=== PATIENT | female | born 1955 | race Caucasian/White ===

== ENCOUNTER → 2019-09-29 15:07 | Outpatient (CLI) | payer OTHER, SELFPAY ==
--- NOTE | ~2019-09-29 | US_ITS ---
EXAMINATION: US transvaginal DATE: 09/29/2019 15:32 INDICATION: Postmenopausal with mother with prior ovarian cancer TECHNIQUE: Multiple endovaginal sonographic images of the pelvis were obtained. COMPARISON: 09/14/2018 FINDINGS: The retroverted uterus measures 4.4 x 2.0 cm in the longitudinal plane. The endometrial complex measu res 1.5 mm in thickness. Again seen is a small hyperechoic dystrophic calcifications in the region of the endometrial complex likely sequela of prior reported D&C. The right ovary measures 1.3 x 0.8 x 0 .9 cm. The left ovary measures 1.3 x 0.8 x 0.8 cm. There is no free fluid in the pelvis. IMPRESSION: 1. Unremarkable postmenopausal pelvic ultrasound. Reviewed, dictated and finalized at location A. LITIES MAINTENANCE SUPERVISOR
== END ==
PROVIDERS: PCP Family Medicine; Visit Provider Nurse Practitioner
DX: Z80.41 Family history of malignant neoplasm of ovary (principal)
CPT/HCPCS: 76830

== ENCOUNTER 2020-09-18 14:34 | Outpatient (CLI) | payer OTHER, SELFPAY ==
--- NOTE | ~2020-09-18 | XR_ITS ---
XR chest 2V DATE: 09/18/2020 15:45 INDICATION: Chest pain, left side, intermittent for 4 months TECHNIQUE: PA and lateral views COMPARISON: None FINDINGS: Normal heart size. No hilar or mediastinal enlargement. No pulmonary infiltrate or consolid ation, pleural effusion or pulmonary vascular congestion or pneumothorax. Diffuse osteopenia. IMPRESSION: No active cardiopulmonary disease Diffuse osteopenia Reviewed, dictated and finalized at location B. HT CONTROLS ENGINEER
--- NOTE | 2020-09-18 14:56 | ECHO_ITS ---
Patient Info Name: Carmen Serrano Age: 64 years : 1955 Gender: Female Ht: 60 in Wt: 112 lbs BSA: 1.47 m2 HR: 78 bpm BP: 151 / 71 mmHg Heart Rhythm: Sinus Rhythm Technical Quality: Excellent Exam Date: 09/18/2020 3:09 PM Exam Location: [facility] Patient Status: Outpatient Admit Date: 09/18/2020 Staff Ordering Physician: Julian Chase PA-C Music Producer: Pal Ambrocio RDCS Attending Provider: Julian Chase PA-C Referring Physician: Rena LOWE; Exam Type: CA echo doppler color flow Study Info Indications R07.9 - Chest pain, unspecified R01.1 - Cardiac murmur, unspecified Complete two-dimensional, color flow and Doppler transthoracic echocardiogram is performed. Strain analysis performed. History/Risk Factors Chest pain and murmur. Summary 1. Complete two-dimensional, color flow and Doppler transthoracic echocardiogram is performed. 2. Left ventricular chamber dimension is normal. 3. Left ventricular systolic function is normal, estimated at 60-65%. 4. The left ventricular diastolic function is grade I diastolic dysfunction. 5. E/e' 11 is mildly elevated. 6. Global longitudinal strain is normal at -19.5%. 7. There is mild aortic valve regurgitation. 8. There is trace mitral valve regurgitation. 9. No pulmonary hypertension, estimated pulmonary arterial systolic pressure is 26 mmHg. Left Ventricle E/e' 11 is mildly elevated. Global longitudinal strain is normal at -19.5%. Left ventricular chamber dimension is normal. Left ventricular systolic function is normal, estimated at 60-65%. The left ventricular diastolic function is grade I diastolic dysfunction. Right Ventricle Right ventricular chamber dimension is normal. Right ventricular systolic function is normal. Left Atria Left atrial chamber dimension is normal. Right Atria Right atrial chamber dimension is normal. Aortic Valve The aortic valve is trileaflet. There is no aortic valve stenosis. There is mild aortic valve regurgitation. Pulmonic Valve There is no pulmonic regurgitation. Mitral Valve There is no mitral valve stenosis. There is trace mitral valve regurgitation. Tricuspid Valve There is no tricuspid valve regurgitation. No pulmonary hypertension, estimated pulmonary arterial systolic pressure is 26 mmHg. Pericardium/Pleural There is no pericardial effusion. Inferior Vena Cava Normal inferior vena cava with >50% collapse upon inspiration consistent with normal right atrial pressure, 5 mmHg. Aorta The aortic root size at the sinus of Valsalva is normal. Left Ventricular Outflow Tract Name Value Normal LVOT 2D LVOT Diameter 2.0 cm LVOT Doppler LVOT Peak Gradient 3 mmHg LVOT Mean Gradient 2 mmHg LVOT VTI 20 cm LVOT VTI/AV VTI Ratio 0.5 LVOT Stroke Volume 60 ml LVOT CO 4.3 l/min LVOT CI 2.9 l/min/m2 Mitral Valve ------
== END 2020-09-18 14:35 | disposition home or self-care (01) ==
PROVIDERS: PCP Physician Assistant; Visit Provider Physician Assistant
DX: R07.9 Chest pain, unspecified (principal); R01.1 Cardiac murmur, unspecified; M85.89 Other specified disorders of bone density and structure, multiple sites
CPT/HCPCS: 71046; 93306

== ENCOUNTER → 2020-10-01 13:13 | Outpatient (CLI) | payer OTHER, SELFPAY ==
--- NOTE | ~2020-10-01 | DEXA_ITS ---
Bone Density Report Name: Carmen Serrano Age: 64 Sex: Female Ethnicity: White Date of : 1955 Indication: postmenopausal osteoporosis; Referring Provider: YULY, RASHARD Study: Bone densitometry was performed. Exam Date: October 01, 2020 Accession number: [id number] Bone Density: Region BMD T-score Z-score Classification AP Spine (L1-L4) 0.620 -3.9 -2.2 Osteoporosis Femoral Neck (Left) 0.519 -3.0 -1.5 Osteoporosis Total Hip (Left) 0.573 -3.0 -1.9 Osteoporosis Femoral Neck (Right) 0.463 -3.5 -2.0 Osteoporosis Total Hip (Right) 0.587 -2.9 -1.8 Osteoporosis Total Hip Mean 0.580 -3.0 -1.9 Osteoporosis World Health Organization criteria for BMD impression classify patients as: Normal (T-score at or above -1.0), Osteopenia (T-score between -1.0 and -2.5), or Osteoporosis (T-score at or below -2.5). 10-year Fracture Risk: FRAX not reported because: Some T-score for Spine Total or Hip Total or Femoral Neck at or below -2.5 Previous Exams: Region Exam Age BMD T-score BMD Change BMD Change Date g/cm2 vs Baseline vs Previous AP Spine(L1-L4) 10/01/2020 64 0.620 -3.9 -0.103* -0.046* 02/27/2011 55 0.666 -3.5 -0.056* -0.056* 02/28/2009 53 0.723 -2.9 Total Hip(Left) 10/01/2020 64 0.573 -3.0 -0.107* -0.061* 02/27/2011 55 0.634 -2.5 -0.046* -0.046* 02/28/2009 53 0.680 -2.1 Total Hip(Right) 10/01/2020 64 0.587 -2.9 -0.084* -0.054* 02/27/2011 55 0.641 -2.5 -0.030* -0.030* 02/28/2009 53 0.671 -2.2 *Denotes significance at 95% confidence level, LSC for AP Spine = 0.022 g/cm2, LSC for Total Hip = 0.027 g/cm2 Clinical Information Provided by Patient: Has used the following medications: Calcium, just started weekly Vit D Patient maximum height was 60 Menopause Age: 55 No regular weight bearing exercise Does not regularly consume dairy products Drinks caffeinated beverages Onset of menses at age 16 Number of children 3 Impression: The patient has osteoporosis, based on the Total Spine T-score. The BMD for the AP Spine(L1-L4) decreased, changing by -0.046 since the last DXA exam. The BMD for the Total Hip(Left) decreased, changing by -0.061 since the last DXA exam. The BMD for the Total Hip(Right) decreased, changing by -0.054 since the last DXA exam. Discussion: HIGH RISK OF FRACTURE. BONE DENSITY IS UNDESIRABLY LOW AT ONE OR
--- NOTE | ~2020-10-01 | US_ITS ---
EXAMINATION: US transvaginal DATE: 10/01/2020 14:23 INDICATION: Family history of ovarian cancer TECHNIQUE: Multiple endovaginal sonographic images of the pelvis were obtained. COMPARISON: 09/29/2019 FINDINGS: The uterus measures 4.5 x 1.7 x 1.3 cm. The endometrial complex measures 1 mm. The right ov aldo is not visualized however no right adnexal abnormality is seen. The left ovary measures 1.4 x 0.7 x 0.7 cm. There is no free fluid in the pelvis. IMPRESSION: 1. Unremarkable pelvic ultrasound. Reviewed, dictated and finalized at location A. MACY ANCILLARY
--- NOTE | ~2020-10-01 | MM_ITS ---
EXAMINATION: MM screening nelia BI w asha HISTORY: Screening TECHNIQUE: Craniocaudal and mediolateral oblique 3-D tomosynthesis images were obtained and synthetic 2-D images were generated. CAD analysis was submitted and interpreted. COMPARISON: Comparison to multiple prior studies sequentially, with oldest reviewed study dated 10/2013. BREAST PARENCHYMAL COMPOSITION: The breasts are heterogeneously dense, which may obscure small masses . FINDINGS: There is a mass in the lower inner quadrant of the left breast anteriorly which is partiall y obscured by fibroglandular tissue. The right breast is stable without evidence for malignancy. IMPRESSION: 1. Left breast mass, lower inner quadrant anteriorly. 2. Additional mammographic views and possible breast ultrasound are recommended. BI-RADS Category 0: Incomplete: Needs additional imaging evaluation. Reviewed, dictated and finalized at location A. HEALTH SPEECH THERAPIST IMPRESSION: 1. Left breast mass, lower inner quadrant anteriorly. 2. Additional mammographic views and possible breast ultrasound are recommended . BI-RADS Category 0: Incomplete: Needs additional imaging evaluation.
== END ==
PROVIDERS: Visit Provider Nurse Practitioner
DX: Z12.31 Encounter for screening mammogram for malignant neoplasm of breast (principal); Z13.820 Encounter for screening for osteoporosis; M81.0 Age-related osteoporosis without current pathological fracture; Z80.41 Family history of malignant neoplasm of ovary; N63.24 Unspecified lump in the left breast, lower inner quadrant
CPT/HCPCS: 76830; 77063; 77067; 77080

== ENCOUNTER → 2020-10-10 09:16 | Outpatient (CLI) | payer OTHER, SELFPAY ==
--- NOTE | ~2020-10-10 | MMUS_ITS ---
EXAMINATION: MM diagnostic mammo unilat LT, US breast LT limited HISTORY: Left lower inner quadrant anterior breast mass reported on 10/01/2020 bilateral digital screen ing mammogram TECHNIQUE: Additional 3-D tomosynthesis images of the left breast were performed and synthetic 2-D im ages were generated. CAD analysis was submitted and interpreted. High resolution subareolar left shelly st ultrasound was performed. COMPARISON: 10/01/2020, 09/14/2018, 08/11/2017, 07/06/2016 bilateral digital screening mammogram examinati ons. FINDINGS: MAMMOGRAPHIC FINDINGS: No suspicious mass, architectural distortion or skin thickening or retraction or any malignant calcif ication is noted. No definite changes noted on serial examinations dating back to 07/06/2016. ULTRASOUND: At 7-8:00 in the subareolar area there is a somewhat elongated circumscribed parallel hypoechoic area with through transmission, with benign mammographic appearance. No suspicious mass, shadowing or suspicious vascularity is evident. IMPRESSION: 1. No mammographic evidence of malignancy or significant change since 07/06/2016 2. Routine annual mammographic screening is recommended. BI-RADS Category 2: Benign finding(s). Reviewed, dictated and finalized at location A. SFER AND PUMPHOUSE OPERATOR CHIEF IMPRESSION: 1. No mammographic evidence of malignancy or significant change since 07/06/2016 2. Routine annual mammographic screening is recommended. BI-RADS Category 2: Benign finding(s).
== END ==
PROVIDERS: Visit Provider Obstetrics & Gynecology Gynecology
DX: R92.8 Other abnormal and inconclusive findings on diagnostic imaging of breast (principal)
CPT/HCPCS: 76642; 77065

== ENCOUNTER → 2021-10-06 12:30 | Outpatient (CLI) | payer OTHER, SELFPAY ==
--- NOTE | ~2021-10-06 | US_ITS ---
EXAMINATION: US transvaginal DATE: 10/06/2021 13:15 INDICATION: Family history of malignant ovarian neoplasm TECHNIQUE: Multiple endovaginal sonographic images of the pelvis were obtained. COMPARISON: 10/01/2020 FINDINGS: The retroverted uterus measures 5.7 x 1.6 x 3.2 cm. The endometrial complex measures 2 mm. 1.7 x 0.7 x 1.8 cm There is 1.1 x 0.5 x 0.8 cm free fluid in the pelvis. IMPRESSION: 1. Unremarkable pelvic ultrasound. Reviewed, dictated and finalized at location B. BOYS TENNIS COACH
--- NOTE | ~2021-10-06 | MM_ITS ---
EXAMINATION: MM screening nelia BI w asha HISTORY: Screening TECHNIQUE: Craniocaudal and mediolateral oblique 3-D tomosynthesis images were obtained and synthetic 2-D images were generated. CAD analysis was submitted and interpreted. COMPARISON: Comparison to multiple prior studies sequentially, with oldest reviewed study dated 08/2014. BREAST PARENCHYMAL COMPOSITION: There are scattered areas of fibroglandular density. FINDINGS: There is no evidence of suspicious mass, calcification, or architectural distortion to sugg est malignancy in either breast. There has been no suspicious interval change. IMPRESSION: 1. No mammographic evidence of malignancy. 2. Recommend routine screening mammography in one year. BI-RADS Category 1: Negative Reviewed, dictated and finalized at location A. CLERK
== END ==
PROVIDERS: Visit Provider Nurse Practitioner
DX: Z12.31 Encounter for screening mammogram for malignant neoplasm of breast (principal); Z80.41 Family history of malignant neoplasm of ovary
CPT/HCPCS: 76830; 77063; 77067

== ENCOUNTER → 2022-06-30 09:12 | Outpatient (CLI) | payer MEDICARE, SELFPAY ==
--- NOTE | ~2022-06-30 | XR_ITS ---
XR lumbar spine min 4V DATE: 06/30/2022 09:27 INDICATION: Lifting injury 3 weeks ago. Low back pain. TECHNIQUE: AP, lateral, bilateral oblique views, coned lateral lumbosacral view COMPARISON: None FINDINGS: Diffuse osteopenia. Normal alignment of the lumbar spine. No fracture or bone destruction, spondylolysis or spondylolisth esis. Pedicles are preserved. The sacroiliac joints and pubic symphysis are intact. IMPRESSION: Osteopenia; otherwise negative Reviewed, dictated and finalized at location B. TER SPRAY
== END ==
PROVIDERS: PCP Family Medicine; Visit Provider Physician Assistant Medical
DX: M81.0 Age-related osteoporosis without current pathological fracture (principal); M54.50 Low back pain, unspecified; M85.88 Other specified disorders of bone density and structure, other site
CPT/HCPCS: 72110

== ENCOUNTER 2022-08-11 15:05 | Outpatient (CLI) | payer MEDICARE, SELFPAY ==
[2022-08-11 16:16] LABS: Influenza A QL RT-PCR Negative (Negative); Influenza B QL RT-PCR Negative (Negative); RSV RNA, RT-PCR Negative (Negative); SARS-CoV-2 RNA PCR Negative
== END 2022-08-11 15:06 | disposition home or self-care (01) ==
LOC: ANHLAB 15:07
PROVIDERS: PCP Family Medicine; Visit Provider Family Medicine
DX: J06.9 Acute upper respiratory infection, unspecified (principal); Z20.822 Contact with and (suspected) exposure to COVID-19
CPT/HCPCS: 87637

== ENCOUNTER → 2023-01-27 13:46 | Outpatient (CLI) | payer MEDICARE, SELFPAY ==
--- NOTE | ~2023-01-27 | MM_ITS ---
EXAMINATION: MM screening nelia BI w asha HISTORY: Screening mammogram TECHNIQUE: Craniocaudal and mediolateral oblique 3-D tomosynthesis images were obtained and synthetic 2-D images were generated. CAD analysis was submitted and interpreted. COMPARISON: 10/06/2021 bilateral screening mammogram 10/10/2020 diagnostic left mammogram and limited left breast ultrasound 10/01/2020 bilateral screening mammogram BREAST PARENCHYMAL COMPOSITION: The breasts are heterogeneously dense, which may obscure small masses . FINDINGS: There is no evidence of suspicious mass, calcification, or architectural distortion to sugg est malignancy in either breast. There has been no suspicious interval change. IMPRESSION: 1. No mammographic evidence of malignancy. 2. Recommend routine screening mammography in one year. BI-RADS Category 1: Negative Reviewed, dictated and finalized at location A.
--- NOTE | ~2023-01-27 | US_ITS ---
EXAMINATION: US transvaginal DATE: 01/27/2023 14:13 INDICATION: PAIN . Family history of ovarian cancer. Postmenopausal. No current tamoxifen therapy. TECHNIQUE: Multiple endovaginal sonographic images of the pelvis were obtained. COMPARISON: 10/06/2021 FINDINGS: Uterus: Retroverted and retroflexed, 4.7 x 2.2 x 3.0 cm. Endometrial complex measures 1 mm. Right Ovary: 1.9 x 1.3 x 1.3 cm. Vascular flow is present. No adnexal mass Left Ovary: 1.0 x 0.7 x 1.3 cm. Vascular flow is present. No adnexal mass There is no free fluid in the pelvis. IMPRESSION: Normal pelvic sonogram findings. Reviewed, dictated and finalized at location K.
== END ==
PROVIDERS: PCP Obstetrics & Gynecology Gynecology; Visit Provider Nurse Practitioner
DX: Z12.31 Encounter for screening mammogram for malignant neoplasm of breast (principal); R10.2 Pelvic and perineal pain
CPT/HCPCS: 76830; 77063; 77067

== ENCOUNTER 2023-10-14 09:49 | Outpatient (CLI) | payer MEDICARE, SELFPAY ==
--- NOTE | ~2023-10-14 | XR_ITS ---
EXAMINATION: XR cervical spine min 6V DATE: 10/14/2023 10:06 INDICATION: Radiculopathy, cervical region. TECHNIQUE: 7 views of cervical spine including flexion and extension views were obtained. COMPARISON: None. FINDINGS: There is mild kyphosis of cervical spine. There is 3 degrees dextrocurvature of cervical sp ine. There is no abnormal motion with flexion or extension. Vertebral body heights are normal. There is moderately decreased disc height at C5-C6 and C6-C7. There is multilevel uncovertebral joint osteo arthritis, severe on the left at C5-C6 and C6-C7. There is multilevel mild facet joint osteoarthritis . There is mild left neural foraminal stenosis at C5-C6 and C6-C7. No central canal stenosis or preve rtebral soft tissue swelling. IMPRESSION: 1. Moderate cervical spondylosis. Reviewed, dictated and finalized at location A.
== END 2023-10-14 09:50 ==
LOC: MICIMG 09:51
PROVIDERS: PCP Physician Assistant Medical; Visit Provider Physician Assistant Medical
DX: M54.12 Radiculopathy, cervical region (principal); M43.02 Spondylolysis, cervical region
CPT/HCPCS: 72052

== ENCOUNTER 2024-02-10 13:10 | Outpatient (CLI) | payer MEDICARE, SELFPAY ==
--- NOTE | ~2024-02-10 | MM_ITS ---
EXAMINATION: MM screening nelia BI w asha HISTORY: Screening TECHNIQUE: Craniocaudal and mediolateral oblique 3-D tomosynthesis images were obtained and synthetic 2-D images were generated. CAD analysis was submitted and interpreted. COMPARISON: Comparison to multiple prior studies sequentially, with oldest reviewed study dated 08/11. BREAST PARENCHYMAL COMPOSITION: Dense: The breasts are heterogeneously dense, which may obscure small masses FINDINGS: There is no evidence of suspicious mass, calcification, or architectural distortion to sugg est malignancy in either breast. There has been no suspicious interval change. IMPRESSION: 1. No mammographic evidence of malignancy. 2. Recommend routine screening mammography in one year. BI-RADS Category 1: Negative Reviewed, dictated and finalized at location B.
--- NOTE | ~2024-02-10 | US_ITS ---
EXAMINATION: US transvaginal DATE: 02/10/2024 13:47 INDICATION: History of ovarian cancer. TECHNIQUE: Multiple transvaginal sonographic images of the pelvis were obtained. COMPARISON: Ultrasound 01/27/2023 FINDINGS: The uterus measures 4.6 x 2.7 x 3.0 cm. There is trace free fluid in the pelvis. The endometrial comp julio cesar measures 3 mm in thickness. The right ovary measures 1.3 x 0.5 x 0.7 cm. The left ovary measures 1.2 x 1.2 x 1.1 cm. There is normal vascular flow in the ovaries. IMPRESSION: 1. Normal pelvis. Reviewed, dictated and finalized at location E. IMPRESSION: 1. Normal pelvis.
== END 2024-02-10 13:11 ==
LOC: MICIMG 13:11
PROVIDERS: PCP Family Medicine; Visit Provider Nurse Practitioner
DX: Z12.31 Encounter for screening mammogram for malignant neoplasm of breast (principal); M81.0 Age-related osteoporosis without current pathological fracture; Z80.41 Family history of malignant neoplasm of ovary
CPT/HCPCS: 76830; 77063; 77067

== ENCOUNTER 2025-04-23 09:26 | Outpatient (CLI) | payer MEDICARE, SELFPAY ==
--- NOTE | ~2025-04-23 | MM_ITS ---
EXAMINATION: MM screening nelia BI w asha HISTORY: Screening TECHNIQUE: Craniocaudal and mediolateral oblique 3-D tomosynthesis images were obtained and synthetic 2-D images were generated. CAD analysis was submitted and interpreted. COMPARISON: Comparison to multiple prior studies sequentially, with oldest reviewed study dated , 09/14/2018 BREAST PARENCHYMAL COMPOSITION: The breasts are heterogeneously dense, which may obscure small masses. FINDINGS: There is no evidence of suspicious mass, calcification, or architectural distortion to suggest malignancy in either breast. IMPRESSION: 1. No mammographic evidence of malignancy. 2. Recommend routine screening mammography in one year. BI-RADS Category 1: Negative Reviewed, dictated and finalized at location B.
--- NOTE | ~2025-04-23 | DEXA_ITS ---
Bone Density Report Name: SARAH ACOSTA Age: 69 Sex: Female Ethnicity: White Date of : 1955 Indication: postmenopausal osteoporosis; Referring Provider: YULY, RASHARD Study: Bone densitometry was performed. Exam Date: April 23, 2025 Accession number: [id number] Bone Density: Region BMD T-score Z-score Classification AP Spine(L1-L4) 0.589 -4.2 -2.2 Osteoporosis Femoral Neck (Left) 0.435 -3.7 -2.0 Osteoporosis Total Hip (Left) 0.611 -2.7 -1.3 Osteoporosis Femoral Neck (Right) 0.427 -3.8 -2.1 Osteoporosis Total Hip (Right) 0.590 -2.9 -1.5 Osteoporosis Total Hip Mean 0.601 -2.8 -1.4 Osteoporosis World Health Organization criteria for BMD impression classify patients as: Normal (T-score at or above -1.0), Osteopenia (T-score between -1.0 and -2.5), or Osteoporosis (T-score at or below -2.5). 10-year Fracture Risk: FRAX not reported because: Some T-score for Spine Total or Hip Total or Femoral Neck at or below -2.5 Previous Exams: Region Exam Age BMD T-score BMD Change BMD Change Date g/cm2 vs Baseline vs Previous AP Spine (L1-L4) 04/23/2025 69 0.589 -4.2 -0.031 (-5.0%) -0.031 (-5.0%) 10/01/2020 64 0.620 -3.9 Total Hip(Left) 04/23/2025 69 0.611 -2.7 0.038 (6.6%)# 0.038 (6.6%)# 10/01/2020 64 0.573 -3.0 Total Hip(Right) 04/23/2025 69 0.590 -2.9 0.003 (0.5%)# 0.003 (0.5%)# 10/01/2020 64 0.587 -2.9 *Denotes significance at 95% confidence level, LSC for AP Spine = 0.022 g/cm2, LSC for Total Hip = 0.027 g/cm2 # Denotes dissimilar scan types or analysis methods Clinical Information Provided by Patient: Has used the following medications: Vitamin D, multi vitamin Patient maximum height was 60 Menopause Age: 55 No regular weight bearing exercise Does not regularly consume dairy products Drinks caffeinated beverages Onset of menses at age 16 Number of children 3 Impression: The patient has osteoporosis, based on the Total Spine T-score. No significant bone loss was observed. Discussion: HIGH RISK OF FRACTURE. BONE DENSITY IS UNDESIRABLY LOW AT ONE OR MORE SKELETAL SITES, CONSISTENT WITH OSTEOPOROSIS. ALSO, BONE DENSITY IS LOWER THAN EXPECTED FOR AGE AND SEX AT ONE OR MORE SKELETAL SITES; RECOMMEND A DILIGENT SEARCH FOR SECONDARY CAUSES OF BONE LOSS. This patient's lowest T-score meets the World Health Organization's (WHO) criteria for osteoporosis at one or more sites (T-score -2.5 or below). In untreated patients, the risk of osteoporotic fracture increases approximately two-fold for each 1.0 SD decrease in T-score. Low bone density is not the only risk factor for fracture; also consider factors such as patient's age, frailty or poor health, risk of falling, risk of injury, previous osteoporotic fracture, family history of osteoporosis, cigarette smoking, low body weight, etc. Not everyone with low bone mineral density has osteoporosis; osteomalacia and other metabolic bone disorders should also be considered. Patients who have osteoporosis should be evaluated for specific diseases and conditions (secondary causes) that may cause or contribute to bone loss. The [place] Association [employer] Clinical Endocrinologists (AACE) and National Osteoporosis Foundation (NOF) recommend pharmacologic intervention for all postmenopausal women whose T-score is in this range. Also, this patient's bone mineral density is below the range considered normal for healthy age-, sex-, and race-matched controls at least one site (Z-score -2.0 or below). This warrants careful evaluation for diseases and conditions that may contribute to accelerated bone loss. The patient should follow a healthful lifestyle (good nutrition with adequate calcium and vitamin D, and appropriate weight-bearing exercise). Follow-Up: Consider a repeat BMD and Vertebral Fracture Assessment (VFA) exam in 2 years or sooner if medically necessary, to reassess this patient's status. Reported by: SOWMYA on 04/23/2025 10:13:00 AM. Reviewed, dictated and finalized at location A.
--- OUTSIDE RECORDS SUMMARY | 2025-04-23 10:21 | XMS_ITS | Clinical Summary ---
Author Organization [facility] [place] [address] Address [address] [place] [address] Care Team Providers Care Mill Control Operator Name Role Phone Becca Reyes MD Primary Care Provider [phone] Allergies No known active allergies Medications rosuvastatin (CRESTOR) 5 mg tablet Take 1 tablet (5 mg total) by mouth daily 04/07/2024 Active meloxicam (MOBIC) 15 mg tablet Take 1 tablet (15 mg total) by mouth daily for 14 days 14 tablet 04/27/2024 Active Active Problems No known active problems Social History Tobacco Use Types Packs/Day Years Used Date Smoking Tobacco: Never Tobacco Cessation:Counseling Given: Not Answered Personal Safety Answer Date Recorded Getting School Help Needed Not on file 03/15 Comments Unknown Sex and Gender Information Value Date Recorded Sex Assigned at Not on file Legal Sex Female 12:05 PM STORE PERSON Gender Identity Not on file Sexual Orientation Not on file Obstetrics History Last Filed Vital Signs Vital Sign Reading Time Taken Comments Blood Pressure 144/75 03/22/2024 8:50 AM CDT Pulse - - Temperature - - Respiratory Rate - - Oxygen Saturation - - Inhaled Oxygen Concentration - - Weight 47.6 kg (105 lb) 04/27/2024 1:37 PM CDT Height 152.4 cm (5') 04/27/2024 1:37 PM CDT Body Mass Index 20.51 04/27/2024 1:37 PM CDT Plan of Treatment Health Maintenance Due Date Last Done Comments Breast Cancer Screening-Mammogram 1955 Colon Cancer Screening-Colonoscopy 1955 Depression Screening 1955 Fall Risk Assessment 1955 Hepatitis C Screening 1955 Osteoporosis Screening-Bone Density Scan 1955 DTaP/Tdap/Td Vaccine (1 - Tdap) 12/14/1967 Hepatitis B Screening 1974 Pneumococcal vaccine 65+ (1 of 1 - PCV) 2006 Well Visit 65+ 2021 Covid-19 Vaccine (6 - 2024-2 6 season) 2025 05/21/2023, 10/28/2022, 07/02/2021, Additional history exists Influenza Vaccine (#1) 2025 05/21/2023 Zoster Vaccine Completed 10/28/2022, 05/12/2022 Insurance [facility] MEDICARE [employer] MEDICARE Care Teams Mill Control Operator Relationship Specialty Start Date End Date Becca Reyes MD PCP - General Family Medicine 03/22/24
== END 2025-04-23 09:27 | disposition home or self-care (01) ==
LOC: ANHFOHIMG 09:29
PROVIDERS: PCP Family Medicine; Visit Provider Nurse Practitioner
DX: M81.0 Age-related osteoporosis without current pathological fracture (principal); Z12.31 Encounter for screening mammogram for malignant neoplasm of breast; Z78.0 Asymptomatic menopausal state
CPT/HCPCS: 77063; 77067; 77080